=== PATIENT | female | born 1970 | race American Indian/Alaskan Native ===

== ENCOUNTER 2017-08-16 08:08 | Outpatient (CLI) | payer BC ==
--- NOTE | 2017-08-16 09:55 | Mammography Report ---
Screening mammogram: Mammotomograms were obtained bilaterally in CC and lateral views with 2-D compiled images. The fibroglandular pattern is heterogeneous. In the upper outer right breast there is a focal area of denser fibroglandular appearing tissue. No calcifications. The findings otherwise appeared generally symmetric and unremarkable bilaterally. Unknown location of prior exams. CAD used. Impression: Right breast asymmetry. Recommendation: If the location of prior exams cannot be obtained for comparison recommend right breast ultrasound. BI-RADS CATEGORY: 0 = Needs additional imaging evaluation ACR BI-RADS MAMMOGRAPHIC CODES: 0 = Needs additional imaging evaluation; 1 = Negative; 2 = Benign; 3 = Probably benign; 4 = Suspicious; 5 = Malignant; 6 = Known biopsy-proven malignancy COMMENT: 1. Dense breast tissue, i.e., adenosis, fibrocystic changes, etc., may obscure an underlying neoplasm. 2. Approximately 10% of cancers are not detected with mammography. 3. A negative mammography report should not delay biopsy if a clinically suspicious mass is present. No
== END 2017-08-16 08:09 | disposition home or self-care (01) ==
LOC: MAMMO 08:08
PROVIDERS: ATTEND Obstetrics & Gynecology
DX: Z12.31 Encounter for screening mammogram for malignant neoplasm of breast (principal)
CPT/HCPCS: 77063; G0202; 77067

== ENCOUNTER 2017-11-14 08:18 | Outpatient (CLI) | payer BC ==
--- NOTE | 2017-11-14 15:51 | Ultrasound Report ---
FINAL REPORT EXAM: US PELVIC COMPLETE HISTORY: DYSFUNCTIONAL UTERINE BLEEDING TECHNIQUE: Ultrasound evaluation of the pelvis using TRANSABDOMINAL technique PRIORS: None. FINDINGS: Uterus measures 9.3 x 5.9 x 5.3 cm. No cul-de-sac free fluid. Neither ovary visualized with transabdominal technique. No visible adnexal mass. IMPRESSION: No sonographic evidence of acute pelvic pathology
--- NOTE | 2017-11-14 15:53 | Ultrasound Report ---
FINAL REPORT EXAM: US TRANSVAGINAL HISTORY: DYSFUNCTIONAL UTERINE BLEEDING , patient , LMP 11/01/2017 TECHNIQUE: Ultrasound evaluation of the pelvis using TRANSVAGINAL technique PRIORS: None. FINDINGS: Uterus size and shape are normal, 9.3 x 5.9 x 5.3 cm. Two small hypoechoic nodules are suggestive of fibroids. One measures 17 mm in the upper fundus and the other is 8 mm in the lower anterior uterus. Nabothian cyst in the cervix. The premenopausal endometrium is homogenous. Endometrial thickness is 6mm. There is no cul-de-sac free fluid. Normal ovarian size. No evidence of solid ovarian mass. Ovarian/adnexal blood flow is present. The adnexa are normal. Right ovary: 2.2 x 0.9 x 1.9 cm Left ovary: 2.0 x 1.1 x 1.8 cm IMPRESSION: Two small uterine nodules suggestive of fibroids Normal-appearing endometrium
== END 2017-11-14 08:19 | disposition home or self-care (01) ==
LOC: US 08:18
PROVIDERS: ATTEND Obstetrics & Gynecology
DX: N88.8 Other specified noninflammatory disorders of cervix uteri (principal); N93.8 Other specified abnormal uterine and vaginal bleeding
CPT/HCPCS: 76830; 76856

== ENCOUNTER 2018-06-19 10:58 | Outpatient (CLI) | payer BC ==
[2018-06-19 11:40] LABS: Hematocrit 38.2 % (30.3-42.9); Hemoglobin 12.8 gm/dl (10.1-14.3); Mean Corpuscular HGB Conc 34 % (30-34); Mean Corpuscular Hemoglobin 29 pg (28-32); Mean Corpuscular Volume 86 fl (79-97); Platelet Count 223 K/mm3 (140-440); Red Blood Count 4.46 M/mm3 (3.65-5.03); Red Cell Distribution Width 14.1 % (13.2-15.2)
[2018-06-19 12:24] LABS: Alanine Aminotransferase 9 units/L (7-56); Albumin 3.8 g/dL (3.9-5); BUN/Creatinine Ratio 14; Blood Urea Nitrogen 10 mg/dL (7-17); Calcium 8.8 mg/dL (8.4-10.2); Chol/HDL Ratio 4.84 %; HDL Cholesterol 46 mg/dL (40-59); Hemolysis Index 0; LDL Cholesterol,Direct 183 mg/dL (50-130)
[2018-06-19 12:31] LABS: Free T4 (Free Thyroxine) 1.32 ng/dL (0.76-1.46)
== END 2018-06-19 10:59 | disposition home or self-care (01) ==
LOC: LAB 10:58
PROVIDERS: ATTEND Internal Medicine
DX: Z01.419 Encounter for gynecological examination (general) (routine) without abnormal findings (principal); N97.9 Female infertility, unspecified; Z88.2 Allergy status to sulfonamides; Z91.040 Latex allergy status
CPT/HCPCS: 36415; 80053; 80061; 82652; 82672; 83001; 83036; 84144; 84439; 84443; 85027

== ENCOUNTER 2019-05-12 07:25 | Outpatient (CLI) | payer BC ==
--- NOTE | 2019-05-12 08:44 | Mammography Report ---
BILATERAL DIGITAL SCREENING MAMMOGRAMS WITH CAD INDICATION: Screening. COMPARISONS: 08/16/2017 FINDINGS: Craniocaudal and mediolateral oblique views of both breasts were obtained using 2-D digital acquisition. The breast tissue is heterogeneously dense, which may obscure small masses. A partially circumscribed right outer asymmetry on the CC view requires additional imaging. It is not identified on the comparison mammogram. No architectural distortion or suspicious calcifications. Th e left breast is negative. IMPRESSION: Right asymmetry requiring additional imaging. Recommend recall for right ML and CC spot compression v iews and right breast ultrasound if needed. BI-RADS CATEGORY 0: INCOMPLETE - NEED ADDITIONAL IMAGING EVALUATION AND/OR PRIOR MAMMOGRAMS FOR COMP ARISON Information is entered into a reminder system for a target due date for the next mammogram. The resul ts and recommendations were sent to the patient by mail. Signer Name: Mikey Umaña MD Signed: 05/12/2019 8:40 AM Workstation Name: [id number]
== END 2019-05-12 07:26 | disposition home or self-care (01) ==
LOC: MAMMO 07:25
PROVIDERS: ATTEND Obstetrics & Gynecology
DX: Z12.31 Encounter for screening mammogram for malignant neoplasm of breast (principal)
CPT/HCPCS: 77067

== ENCOUNTER 2019-05-31 00:56 | Emergency (ER) | payer BC ==
[2019-05-31 01:15] VITALS: BP 137/99
[2019-05-31] MEDS ORDERED: DELTASONE PO ONE (01:47)
[2019-05-31] MEDS ORDERED: IBUPROFEN PO ONE (01:47)
--- NOTE | 2019-05-31 01:55 | XRay Report ---
LEFT FOOT 3 VIEWS . INDICATION / CLINICAL INFORMATION: Left foot/heel pain. COMPARISON: None available. FINDINGS: Small plantar calcaneal spur. Mild degenerative change in the first metatarsophalangeal joint. No oth er significant skeletal abnormality. Signer Name: Partha TERRY Signed: 05/31/2019 1:50 AM Workstation Name: [id number]
--- NOTE | 2019-05-31 02:05 | Emergency Department Report ---
ED Lower Extremity HPI - General Chief Complaint: Extremity Injury, Lower Stated Complaint: L FOOT PAIN Time Seen by Provider: 05/31/19 01:33 Source: patient Mode of arrival: Ambulatory Limitations: No Limitations - History of Present Illness Initial Comments: pt is a 49 y/o aaf who presents for left foot pain and mild swelling to heel x 2 months denies fall injury or trauma no nubmess or tingling pain is 7/10 plantar region MD Complaint: foot injury Onset/Timin -: month(s) Injury: Foot: Left Type of Injury: unknown Place: home Severity: moderate Severity scale (0 -10): 5 Improves With: NSAID Worsens With: weight bearing, movement, palpation Associated Symptoms: swelling, able to partially bear weight - Related Data Previous Rx's Medication Instructions Recorded Last Taken Type Ibuprofen [Motrin 800 MG tab] 800 mg PO Q8HR PRN #30 tablet 05/31/19 Unknown Rx predniSONE [Deltasone] 40 mg PO QDAY 5 Days #10 tab 05/31/19 Unknown Rx Allergies Allergy/AdvReac Type Severity Reaction Status Date / Time latex AdvReac Rash,ITCHIN Verified 05/31/19 01:50 G,HIVES Sulfa (Sulfonamide AdvReac Itching,HIV Verified 05/31/19 01:50 Antibiotics) ES ED Review of Systems ROS: Stated complaint: L FOOT PAIN Other details as noted in HPI Constitutional: denies: chills, fever Eyes: denies: eye pain, eye discharge, vision change ENT: denies: ear pain, throat pain Respiratory: denies: cough, shortness of breath, wheezing Cardiovascular: denies: chest pain, palpitations Endocrine: no symptoms reported Gastrointestinal: denies: abdominal pain, nausea, diarrhea Genitourinary: denies: urgency, dysuria, discharge Musculoskeletal: other (heel pain ). denies: back pain, joint swelling, arthralgia Skin: denies: rash, lesions Neurological: denies: headache, weakness, paresthesias Psychiatric: denies: anxiety, depression Hematological/Lymphatic: denies: easy bleeding, easy bruising ED Past Medical Hx - Past Medical History Previous Medical History?: Yes Hx Asthma: Yes - Surgical History Past Surgical History?: Yes Additional Surgical History: Tubal ligation and reversal - Social History Smoking Status: Never Smoker Substance Use Type: None - Medications Home Medications: Home Medications Medication Instructions Recorded Confirmed Last Taken Type Ibuprofen [Motrin 800 MG tab] 800 mg PO Q8HR PRN #30 tablet 05/31/19 Unknown Rx predniSONE [Deltasone] 40 mg PO QDAY 5 Days #10 tab 05/31/19 Unknown Rx ED Physical Exam - General Limitations: No Limitations General appearance: alert, in no apparent distress - Head Head exam: Present: atraumatic, normocephalic - Eye Eye exam: Present: normal appearance, PERRL, EOMI Pupils: Present: normal accommodation - ENT ENT exam: Present: mucous membranes moist - Neck Neck exam: Present: normal inspection, full ROM - Respiratory Respiratory exam: Present: normal lung sounds bilaterally. Absent: respiratory distress, wheezes, stridor, chest wall tenderness - Cardiovascular Cardiovascular Exam: Present: regular rate, normal rhythm, normal heart sounds. Absent: systolic murmur, diastolic murmur, rubs, gallop - GI/Abdominal GI/Abdominal exam: Present: soft, normal bowel sounds. Absent: distended, tenderness, bruit, hernia - Rectal Rectal exam: Present: deferred - Extremities Exam Extremities exam: Present: full ROM, tenderness, normal capillary refill, joint swelling. Absent: pedal edema, calf tenderness - Expanded Lower Extremity Exam Left Foot/Toe exam: Present: tenderness (left heel plantar region ), calcaneal tenderness. Absent: swelling, abrasion, laceration, ecchymosis, deformity, crepidus, dislocation, erythema, amputation, puncture wound, foreign body, tenderness at base of 5th metatarsal, nail avulsion, subungual hematoma Neuro vascular tendon exam: Absent: pulse deficit, motor deficit, sensory deficit, tendon deficit Gait: Positive: observed and limited by pain - Back Exam Back exam: Present: normal inspection, full ROM. Absent: tenderness, CVA tenderness (R), CVA tenderness (L), rash noted - Neurological Exam Neurological exam: Present: alert, oriented X3, CN II-XII intact, normal gait, reflexes normal. Absent: motor sensory deficit - Psychiatric Psychiatric exam: Present: normal affect, normal mood - Skin Skin exam: Present: warm, dry, intact, normal color. Absent: rash ED Course Vital Signs 05/31/19 01:13 Temperature 98.4 F Pulse Rate 74 Respiratory 14 Rate Blood Pressure 137/99 O2 Sat by Pulse 100 Oximetry ED Lower Extremity MDM - Radiology Data Radiology results: report reviewed, image reviewed Ordering Physician: SOBEIDA BOYD MD Date of Service: 05/31/19 Procedure(s): XR foot 3+V LT Accession Number(s): [id number] cc: SOBEIDA BOYD MD Fluoro Time In Minutes: LEFT FOOT 3 VIEWS . INDICATION / CLINICAL INFORMATION: Left foot/heel pain. COMPARISON: None available. FINDINGS: Small plantar calcaneal spur. Mild degenerative change in the first metatarsophalangeal joint. No other significant skeletal abnormality. Signer Name: Partha Casper MD FACR Signed: 05/31/2019 1:50 AM Workstation Name: [id number] Transcribed By: MS Dictated By: Partha Casper MD Electronically Authenticated By: Partha Casper MD Signed Date/Time: 05/31/19149 DD/ 9 TD/TT: - Medical Decision Making this is a heel spur , plantar fascitis plan, nsaids, prednisone, pt will follow up with podiatry in 2-3 days. , Post op shoe improves pain Critical care attestation.: If time is entered above; I have spent that time in minutes in the direct care of this critically ill patient, excluding procedure time. ED Disposition Clinical Impression: Plantar fasciitis of left foot Heel spur Qualifiers: Laterality: left Qualified Code(s): M77.32 - Calcaneal spur, left foot Disposition: - TO HOME OR SELFCARE Is pt being admited?: No Does the pt Need Aspirin: No Condition: Stable Instructions: Plantar Fasciitis (ED) Prescriptions: predniSONE [Deltasone] 40 mg PO QDAY 5 Days #10 tab Ibuprofen [Motrin 800 MG tab] 800 mg PO Q8HR PRN #30 tablet PRN Reason: pain Referrals: GERMAN MATHEWS DPM [Staff Physician] - 3-5 Days Forms: Work/School Release Form(ED) Time of Disposition: 02:14
== END 2019-05-31 02:29 | disposition home or self-care (01) ==
LOC: ED 00:56
DX: M72.2 Plantar fascial fibromatosis (principal); M77.9 Enthesopathy, unspecified; J45.909 Unspecified asthma, uncomplicated; Z98.51 Tubal ligation status; Z79.899 Other long term (current) drug therapy; Z88.2 Allergy status to sulfonamides; Z91.040 Latex allergy status
CPT/HCPCS: 73630; 99283; J7512

== ENCOUNTER 2019-06-05 07:46 | Outpatient (CLI) | payer BC ==
--- NOTE | 2019-06-05 09:26 | Mammography Report ---
RIGHT DIGITAL DIAGNOSTIC MAMMOGRAM WITH CAD 06/05/2019 RIGHT LIMITED BREAST ULTRASOUND INDICATION: Abnormal screening mammogram TECHNIQUE: Digital right mammographic imaging was performed. Spot compression views were obtained. L imited ultrasound was performed. This examination was interpreted with the benefit of Computer-Aided Detection (CAD) analysis. COMPARISON: Screening mammogram, 05/12/2019 FINDINGS: Breast Density: The breasts are heterogeneously dense, which may obscure small masses. There is a well-circumscribed round mass in the upper outer quadrant of the right breast measuring a pproximately 1.4 cm. Mass is located 4-5 cm from the nipple at approximately T10-11 o'clock. Ultrasound Findings: Targeted ultrasound evaluation was performed of the area of interest. There is a 1.4 cm simple cyst in the right breast at 10:00, 4 cm from the nipple. This correlates with mammog raphic findings and needs no further evaluation. IMPRESSION: 1.4 cm simple cyst is present in the right breast at 10:00 and accounts for the mammograp hic finding noted on recent screening mammogram. This is a benign finding requires no further evaluat ion. BI-RADS Category 2: Benign. Recommend routine screening mammography in one year A "normal" or negative report should not discourage follow up or biopsy of a clinically significant f inding. A written summary of these findings will be mailed to the patient. The patient will be entered into a mammography reporting system which will generate a reminder letter for the patient's next appointmen t at the appropriate interval. FURTHER INFORMATION: According to the [employer], yearly mammograms are recommend ed starting at age 40 and continuing as long as a woman is in good health. Breast MRI is recommended for women with an approximately 20-25% or greater lifetime risk of breast cancer, including women wi th a strong family history of breast or ovarian cancer and women who have been treated for Hodgkin's disease. Signer Name: Lia Triana MD Signed: 06/05/2019 9:22 AM Workstation Name: [email or web address]
--- NOTE | 2019-06-05 09:27 | Ultrasound Report ---
Please see separately dictated right diagnostic mammography report for combined mammogram and ultraso und report. Signer Name: Lia Triana MD Signed: 06/05/2019 9:22 AM Workstation Name: [email or web address]
== END 2019-06-05 07:47 | disposition home or self-care (01) ==
LOC: MAMMO 07:46
PROVIDERS: ATTEND Obstetrics & Gynecology
DX: N60.01 Solitary cyst of right breast (principal); J45.909 Unspecified asthma, uncomplicated

== ENCOUNTER 2020-01-14 22:36 | Emergency (ER) | payer BC ==
--- NOTE | 2020-01-14 22:47 | Emergency Department Report ---
ED General Adult HPI - General Stated complaint: BACK PAIN Time Seen by Provider: 01/14/20 22:45 Source: patient Mode of arrival: Ambulatory Limitations: No Limitations - History of Present Illness Initial comments: Patient is a 49-year-old female who presents emergency room with complaints of right flank and back pain x4 days. Patient states she has been taking Motrin 600 mg every 6 hours with good relief but once the medication wears off the pain comes back in full force. Patient states the pain is a 10 out of 10. Patient states it is worse with movement and palpation. Patient states is better with rest. Patient denies injury or trauma. Patient denies dysuria. Patient denies fever and chills. -: Sudden Location: back Radiation: non-radiation Severity scale (0 -10): 10 Quality: stabbing, sharp Consistency: constant Improves with: rest Worsens with: movement Associated Symptoms: denies: confusion, chest pain, cough, diaphoresis, fever /chills, headaches, loss of appetite, malaise, nausea/vomiting, rash, seizure, shortness of breath, syncope, weakness Treatments Prior to Arrival: NSAID - Related Data Previous Rx's Medication Instructions Recorded Last Taken Type Ibuprofen [Motrin 800 MG tab] 800 mg PO Q8HR PRN #30 tablet 05/31/19 Unknown Rx predniSONE [Deltasone] 40 mg PO QDAY 5 Days #10 tab 05/31/19 Unknown Rx Cyclobenzaprine [Flexeril] 10 mg PO TID PRN #30 tablet 01/15/20 Unknown Rx methylPREDNISolone [Medrol 4MG 4 mg PO DAILY 6 Days #1 tab.ds.pk 01/15/20 Unknown Rx DOSEPAK (21 tabs)] Allergies Allergy/AdvReac Type Severity Reaction Status Date / Time latex AdvReac Rash,ITCHIN Verified 05/31/19 01:50 G,HIVES Sulfa (Sulfonamide AdvReac Itching,HIV Verified 05/31/19 01:50 Antibiotics) ES ED Review of Systems ROS: Stated complaint: BACK PAIN Other details as noted in HPI Constitutional: denies: chills, fever Eyes: denies: eye pain, eye discharge, vision change ENT: denies: ear pain, throat pain Respiratory: denies: cough, shortness of breath, wheezing Cardiovascular: denies: chest pain, palpitations Endocrine: no symptoms reported Gastrointestinal: as per HPI, other. denies: abdominal pain, nausea, diarrhea Genitourinary: denies: urgency, dysuria, discharge Musculoskeletal: back pain. denies: joint swelling, arthralgia Skin: denies: rash, lesions Neurological: denies: headache, weakness, paresthesias Psychiatric: denies: anxiety, depression Hematological/Lymphatic: denies: easy bleeding, easy bruising ED Past Medical Hx - Past Medical History Previous Medical History?: Yes Hx Asthma: Yes - Surgical History Past Surgical History?: Yes Additional Surgical History: Tubal ligation and reversal - Family History Family history: no significant - Social History Smoking Status: Never Smoker Substance Use Type: None - Medications Home Medications: Home Medications Medication Instructions Recorded Confirmed Last Taken Type Ibuprofen [Motrin 800 MG tab] 800 mg PO Q8HR PRN #30 tablet 05/31/19 Unknown Rx predniSONE [Deltasone] 40 mg PO QDAY 5 Days #10 tab 05/31/19 Unknown Rx Cyclobenzaprine [Flexeril] 10 mg PO TID PRN #30 tablet 01/15/20 Unknown Rx methylPREDNISolone [Medrol 4MG 4 mg PO DAILY 6 Days #1 tab.ds.pk 01/15/20 Unknown Rx DOSEPAK (21 tabs)] ED Physical Exam - General Limitations: No Limitations General appearance: alert, in no apparent distress - Head Head exam: Present: atraumatic, normocephalic - Eye Eye exam: Present: normal appearance - ENT ENT exam: Present: mucous membranes moist - Neck Neck exam: Present: normal inspection - Respiratory Respiratory exam: Present: normal lung sounds bilaterally. Absent: respiratory distress - Cardiovascular Cardiovascular Exam: Present: regular rate, normal rhythm. Absent: systolic murmur, diastolic murmur, rubs, gallop - GI/Abdominal GI/Abdominal exam: Present: soft, normal bowel sounds - Extremities Exam Extremities exam: Present: normal inspection - Back Exam Back exam: Present: normal inspection, tenderness, CVA tenderness (R), muscle spasm. Absent: full ROM - Neurological Exam Neurological exam: Present: alert, oriented X3 - Psychiatric Psychiatric exam: Present: normal affect, normal mood - Skin Skin exam: Present: warm, dry, intact, normal color. Absent: rash ED Course Vital Signs 01/14/20 23:55 Temperature 97.9 F Pulse Rate 95 H Respiratory 18 Rate Blood Pressure 134/90 [Left] O2 Sat by Pulse 95 Oximetry - Reevaluation(s) Reevaluation #1: I discussed all results and clinical findings with patient. I discussed plan of care with patient. Patient agrees with plan of care. Patient is stable for discharge. Patient will be discharged home. Patient given discharge instructions. Patient voiced understanding of discharge instructions. 01/15/20 00:37 ED Medical Decision Making - Lab Data Result diagrams: 01/14/20 23:10 01/14/20 23:10 - Radiology Data Radiology results: report reviewed CT ABDOMEN AND PELVIS WITHOUT CONTRAST INDICATION: Left flank pain. COMPARISON: No relevant prior imaging study available. TECHNIQUE: Axial, coronal and sagittal CT imaging of the abdomen and pelvis was performed without contrast. Lack of intravenous contrast limits evaluation of the vascular and solid organs. All CT scans at this location are performed using CT dose reduction for ALARA by means of automated exposure control. FINDINGS: LOWER CHEST: No significant abnormality. LIVER: No significant abnormality. BILIARY: No significant abnormality. PANCREAS: No significant abnormality. SPLEEN: No significant abnormality. ADRENALS: No significant abnormality. KIDNEYS AND URETERS: Multiple bilateral parapelvic cysts are noted measuring up to 4 cm on the right and 4.3 cm on the left. No additional significant abnormality. GI TRACT: No significant abnormality of the stomach, small bowel or colon. Unremarkable appendix. PERITONEUM: No free fluid. No free air. No fluid collection. LYMPH NODES: No significant adenopathy. VASCULATURE: No significant abnormality. URINARY BLADDER: No significant abnormality. REPRODUCTIVE ORGANS: No significant abnormality. ADDITIONAL FINDINGS: None. SKELETAL SYSTEM: No significant abnormality. IMPRESSION: 1. No acute abnormality of the abdomen or pelvis. 2. Additional findings as above. - Medical Decision Making Patient is a 49-year-old female who presents emergency room with right flank and back pain. Patient's clinical findings are consistent with a lumbar muscle strain and muscle spasm. Due to patient's symptoms patient had a CT of the abdomen to check for kidney stones. Patient CT is negative for acute findings but is positive for renal cyst. Patient's labs are unremarkable. Patient given a Toradol IM shot which improved her pain. Patient stable for discharge. Patient discharged home. - Differential Diagnosis Flank pain, kidney stone, UTI. Back pain, back strain Critical care attestation.: If time is entered above; I have spent that time in minutes in the direct care of this critically ill patient, excluding procedure time. ED Disposition Clinical Impression: Flank pain Back pain Qualifiers: Back pain location: low back pain Chronicity: acute Back pain laterality: right Sciatica presence: without sciatica Qualified Code(s): M54.5 - Low back pain Lumbar strain Qualifiers: Encounter type: initial encounter Qualified Code(s): S39.012A - Strain of muscle, fascia and tendon of lower back, initial encounter Disposition: TO HOME OR SELFCARE Is pt being admited?: No Does the pt Need Aspirin: No Condition: Stable Instructions: Muscle Strain (ED), Abdominal Pain (ED), Low Back Strain (ED), Muscle Spasm (ED) Additional Instructions: Patient to follow-up with primary care in 2 to 3 days. Patient to follow-up with orthopedist in 2 to 3 days. Patient to rest. Patient to be off work for 1 day and can return in 24 hours. Patient to increase water. Patient to avoid strenuous exercise or heavy lifting until cleared by orthopedist. Patient to take Tylenol or ibuprofen as needed for pain. Patient to take meds as directed. Patient to return to the ER if condition worsens, changes or new symptoms arise. Prescriptions: Cyclobenzaprine [Flexeril] 10 mg PO TID PRN #30 tablet PRN Reason: Muscle Spasm methylPREDNISolone [Medrol 4MG DOSEPAK (21 tabs)] 4 mg PO DAILY 6 Days #1 tab.ds.pk Referrals: PRIMARY CARE, [Primary Care Provider] - 2-3 Days Time of Disposition: 00:53
[2020-01-14 23:05] LABS: Bilirubin,Urine NEG (Negative); Blood,Urine NEG (Negative); Color,Urine Yellow (Yellow); Mucus,Urine FEW /HPF; Protein,Urine <15 mg/dL mg/dL (Negative); Urobilinogen,Urine < 2.0 mg/dL (<2.0)
[2020-01-14 23:24] LABS: Basophils % (Auto) 0.5 % (0.0-1.8); Eosinophils # (Auto) 0.3 K/mm3 (0.0-0.4); Eosinophils % (Auto) 2.9 % (0.0-4.3); Hematocrit 41.9 % (30.3-42.9); Hemoglobin 13.5 gm/dl (10.1-14.3); Lymphocytes # (Auto) 2.4 K/mm3 (1.2-5.4); Lymphocytes % (Auto) 26.4 % (13.4-35.0); Mean Corpuscular HGB Conc 32 % (30-34); Mean Corpuscular Volume 88 fl (79-97); Monocytes # (Auto) 0.5 K/mm3 (0.0-0.8); Monocytes % (Auto) 5.6 % (0.0-7.3); Platelet Count 231 K/mm3 (140-440); Red Blood Count 4.78 M/mm3 (3.65-5.03); Red Cell Distribution Width 14.8 % (13.2-15.2)
--- NOTE | 2020-01-14 23:40 | Cat Scan Report ---
CT ABDOMEN AND PELVIS WITHOUT CONTRAST INDICATION: Left flank pain. COMPARISON: No relevant prior imaging study available. TECHNIQUE: Axial, coronal and sagittal CT imaging of the abdomen and pelvis was performed without co ntrast. Lack of intravenous contrast limits evaluation of the vascular and solid organs. All CT sca ns at this location are performed using CT dose reduction for ALARA by means of automated exposure co ntrol. FINDINGS: LOWER CHEST: No significant abnormality. LIVER: No significant abnormality. BILIARY: No significant abnormality. PANCREAS: No significant abnormality. SPLEEN: No significant abnormality. ADRENALS: No significant abnormality. KIDNEYS AND URETERS: Multiple bilateral parapelvic cysts are noted measuring up to 4 cm on the right and 4.3 cm on the left. No additional significant abnormality. GI TRACT: No significant abnormality of the stomach, small bowel or colon. Unremarkable appendix. PERITONEUM: No free fluid. No free air. No fluid collection. LYMPH NODES: No significant adenopathy. VASCULATURE: No significant abnormality. URINARY BLADDER: No significant abnormality. REPRODUCTIVE ORGANS: No significant abnormality. ADDITIONAL FINDINGS: None. SKELETAL SYSTEM: No significant abnormality. IMPRESSION: 1. No acute abnormality of the abdomen or pelvis. 2. Additional findings as above. Signer Name: Adrian Nguyễn MD Signed: 01/14/2020 11:35 PM Workstation Name: [id number]
[2020-01-14 23:52] LABS: Alanine Aminotransferase 11 units/L (7-56); Albumin 4.1 g/dL (3.9-5); BUN/Creatinine Ratio 13; Blood Urea Nitrogen 10 mg/dL (7-17); Calcium 9.1 mg/dL (8.4-10.2); Hemolysis Index 5
[2020-01-14 23:53] LABS: Bilirubin,Direct < 0.2 mg/dL (0-0.2)
[2020-01-15 00:14] VITALS: BP 134/90
[2020-01-15] MEDS ORDERED: KETOROLAC 60 MG/2 ML INJ IM ONE (00:35)
== END 2020-01-15 01:00 | disposition home or self-care (01) ==
LOC: ED 22:36
DX: S39.012A Strain of muscle, fascia and tendon of lower back, initial encounter (principal); R10.9 Unspecified abdominal pain; J45.909 Unspecified asthma, uncomplicated; Y93.89 Activity, other specified; Y92.89 Other specified places as the place of occurrence of the external cause; Y99.8 Other external cause status
CPT/HCPCS: 36415; 74176; 80048; 80076; 81001; 85025; 96372; 99284; J1885

== ENCOUNTER 2020-05-05 10:22 | Outpatient (CLI) | payer BC ==
[2020-05-05 11:32] LABS: Chol/HDL Ratio 4.18 %
[2020-05-09 12:50] LABS: Vitamin D, 25-OH, D2 <4 ng/mL
== END 2020-05-05 10:23 | disposition home or self-care (01) ==
LOC: LAB 10:22
PROVIDERS: ATTEND Emergency Medicine
DX: Z01.419 Encounter for gynecological examination (general) (routine) without abnormal findings (principal)
CPT/HCPCS: 36415; 80061; 82306; 82670; 83001; 83036; 86689

== ENCOUNTER 2020-05-23 07:23 | Outpatient (CLI) | payer BC ==
--- NOTE | 2020-05-23 08:51 | Mammography Report ---
DIGITAL SCREENING MAMMOGRAM WITH CAD, 05/23/2020 INDICATION: Routine screening mammography. TECHNIQUE: Digital bilateral 2D mammography was obtained in the craniocaudal and mediolateral obliq ue projections. This examination was interpreted with the benefit of Computer-Aided Detection analysi s. COMPARISON: 05/12/2019, 08/16/2017 FINDINGS: Breast Density: The breasts are heterogeneously dense, which may obscure small masses. There is no evidence of dominant mass, suspicious calcifications or architectural distortion in the l eft breast. Stable mass at 10:00 in the right breast has been proven to be a simple cyst and is gross ly unchanged. Overall, no significant interval change in the appearance of the mammogram. IMPRESSION: No evidence of malignancy. Follow up recommendation: Routine yearly BI-RADS Category 2: Benign. A "normal" or negative report should not discourage follow up or biopsy of a clinically significant f inding. A written summary of these findings will be mailed to the patient. The patient will be entered into a mammography reporting system which will generate a reminder letter for the patient's next appointmen t at the appropriate interval. The [employer] recommends yearly mammograms starting at age 40 and continuing as l omar as a woman is in good health. Breast MRI is recommended for women with an approximate 20-25% or greater lifetime risk of breast cancer, including women with a strong family history of breast or ova celestino cancer or who have been treated for Hodgkin's disease. Signer Name: Lia Triana MD Signed: 05/23/2020 8:46 AM Workstation Name: [email or web address]
== END 2020-05-23 07:24 | disposition home or self-care (01) ==
LOC: MAMMO 07:23
PROVIDERS: ATTEND Obstetrics & Gynecology
DX: Z12.31 Encounter for screening mammogram for malignant neoplasm of breast (principal)
CPT/HCPCS: 77067

== ENCOUNTER 2020-09-26 00:29 | Emergency (ER) | payer BC ==
[2020-09-26 00:40] VITALS: BP 122/83
--- NOTE | 2020-09-26 01:23 | XRay Report ---
CHEST 1 VIEW INDICATION: cough. COMPARISON: None. FINDINGS: Support devices: None. Heart: Normal. Lungs/Pleura: No acute pulmonary or pleural findings. IMPRESSION: 1. No acute findings. Signer Name: Anish Angelo MD Signed: 09/26/2020 1:19 AM Workstation Name: [id number]
--- NOTE | 2020-09-26 02:12 | Emergency Department Report ---
- General Chief Complaint: Upper Respiratory Infection Stated Complaint: COUGH X 1 MONTH PUI?: Yes Time Seen by Provider: 09/26/20 01:31 Source: patient Mode of arrival: Ambulatory Limitations: No Limitations - History of Present Illness MD Complaint: cough, rhinorrhea, nasal congestion -: Gradual, week(s) Severity: mild Consistency: constant Improves With: OTC cold medicine Worsens With: nothing Associated Symptoms: rhinorrhea, nasal congestion, cough. denies: fever, chills, myalgias, diaphoresis, shortness of breath, abdominal pain, vomiting, diarrhea, right sweats, weight loss, hoarseness Treatments Prior to Arrival: none - Related Data Previous Rx's Medication Instructions Recorded Last Taken Type Ibuprofen [Motrin 800 MG tab] 800 mg PO Q8HR PRN #30 tablet 05/31/19 Unknown Rx predniSONE [Deltasone] 40 mg PO QDAY 5 Days #10 tab 05/31/19 Unknown Rx Cyclobenzaprine [Flexeril] 10 mg PO TID PRN #30 tablet 01/15/20 Unknown Rx methylPREDNISolone [Medrol 4MG 4 mg PO DAILY 6 Days #1 tab.ds.pk 01/15/20 Unknown Rx DOSEPAK (21 tabs)] Albuterol Mdi (or & Nicu Only) 2 puff IH QID PRN #1 inhalation 09/26/20 Unknown Rx [ProAir HFA Inhaler] Azithromycin [Zithromax] 500 mg PO QDAY #5 tablet 09/26/20 Unknown Rx Benzonatate [Tessalon Perles] 100 mg PO Q8HR #20 capsule 09/26/20 Unknown Rx Fluconazole (Nf) [Diflucan TAB] 150 mg PO ONCE #1 tablet 09/26/20 Unknown Rx predniSONE [Deltasone] 50 mg PO QDAY #5 tab 09/26/20 Unknown Rx Allergies Allergy/AdvReac Type Severity Reaction Status Date / Time latex AdvReac Rash,ITCHIN Verified 05/31/19 01:50 G,HIVES Sulfa (Sulfonamide AdvReac Itching,HIV Verified 05/31/19 01:50 Antibiotics) ES ED Review of Systems ROS: Stated complaint: COUGH X 1 MONTH Other details as noted in HPI Comment: All other systems reviewed and negative ED Past Medical Hx - Past Medical History Previous Medical History?: Yes Hx Diabetes: Yes Hx Asthma: Yes - Surgical History Past Surgical History?: Yes Additional Surgical History: Tubal ligation and reversal - Social History Smoking Status: Never Smoker Substance Use Type: None - Medications Home Medications: Home Medications Medication Instructions Recorded Confirmed Last Taken Type Ibuprofen [Motrin 800 MG tab] 800 mg PO Q8HR PRN #30 tablet 05/31/19 Unknown Rx predniSONE [Deltasone] 40 mg PO QDAY 5 Days #10 tab 05/31/19 Unknown Rx Cyclobenzaprine [Flexeril] 10 mg PO TID PRN #30 tablet 01/15/20 Unknown Rx methylPREDNISolone [Medrol 4MG 4 mg PO DAILY 6 Days #1 tab.ds.pk 01/15/20 Unknown Rx DOSEPAK (21 tabs)] Albuterol Mdi (or & Nicu Only) 2 puff IH QID PRN #1 inhalation 09/26/20 Unknown Rx [ProAir HFA Inhaler] Azithromycin [Zithromax] 500 mg PO QDAY #5 tablet 09/26/20 Unknown Rx Benzonatate [Tessalon Perles] 100 mg PO Q8HR #20 capsule 09/26/20 Unknown Rx Fluconazole (Nf) [Diflucan TAB] 150 mg PO ONCE #1 tablet 09/26/20 Unknown Rx predniSONE [Deltasone] 50 mg PO QDAY #5 tab 09/26/20 Unknown Rx ED Physical Exam - General Limitations: No Limitations General appearance: alert, in no apparent distress - Head Head exam: Present: atraumatic, normocephalic - Eye Eye exam: Present: normal appearance, PERRL, EOMI Pupils: Present: normal accommodation - ENT ENT exam: Present: mucous membranes moist - Neck Neck exam: Present: normal inspection, full ROM - Respiratory Respiratory exam: Present: normal lung sounds bilaterally. Absent: respiratory distress, wheezes, rales, chest wall tenderness, decreased breath sounds, prolonged expiratory - Cardiovascular Cardiovascular Exam: Present: regular rate, normal rhythm. Absent: bradycardia, systolic murmur, diastolic murmur, rubs, gallop - GI/Abdominal GI/Abdominal exam: Present: soft, normal bowel sounds. Absent: distended, tenderness, organomegaly - Extremities Exam Extremities exam: Present: normal inspection - Back Exam Back exam: Present: normal inspection - Neurological Exam Neurological exam: Present: alert, oriented X3 - Psychiatric Psychiatric exam: Present: normal affect, normal mood - Skin Skin exam: Present: warm, dry, intact, normal color. Absent: rash ED Course Vital Signs 09/26/20 00:32 Temperature 98.2 F Pulse Rate 99 H Respiratory 18 Rate Blood Pressure 122/83 O2 Sat by Pulse 98 Oximetry ED Medical Decision Making - Radiology Data Radiology results: report reviewed This patient presents with acute cough, most consistent with bronchitis. Differential diagnosis includes bronchitis, hyperreactive airway disease, pneumonia, asthma. Presentation not consistent with acute bacterial pneumonia, influenza, asthma, transient airway hyperresponsiveness. Presentation not consistent with chronic causes of cough (including GERD, asthma, postnasal discharge, medication side effect, CHF, lung cancer or mass). Normal CXR Plan: , supportive care, reassess Critical care attestation.: If time is entered above; I have spent that time in minutes in the direct care of this critically ill patient, excluding procedure time. ED Disposition Clinical Impression: Bronchitis Disposition: DC-01 TO HOME OR SELFCARE Is pt being admited?: No Does the pt Need Aspirin: No Condition: Stable Instructions: Chronic Bronchitis (ED), How to Use a Dry Powder Inhaler, Adka-cy-Bhen, Acute Bronchitis, Adult, Chronic Obstructive Pulmonary Disease Prescriptions: predniSONE [Deltasone] 50 mg PO QDAY #5 tab Fluconazole (Nf) [Diflucan TAB] 150 mg PO ONCE #1 tablet Albuterol Mdi (or & Nicu Only) [ProAir HFA Inhaler] 2 puff IH QID PRN #1 inhalation PRN Reason: Shortness Of Breath Benzonatate [Tessalon Perles] 100 mg PO Q8HR #20 capsule Azithromycin [Zithromax] 500 mg PO QDAY #5 tablet Referrals: PRIMARY MD TAYLOR [Primary Care Provider] - 3-5 Days ELISSA RINALDI MD [Staff Physician] - 3-5 Days
== END 2020-09-26 02:11 | disposition home or self-care (01) ==
LOC: ED 00:29
DX: J40 Bronchitis, not specified as acute or chronic (principal); E11.9 Type 2 diabetes mellitus without complications; Z79.899 Other long term (current) drug therapy; Z88.2 Allergy status to sulfonamides; Z91.040 Latex allergy status; Z98.51 Tubal ligation status
CPT/HCPCS: 71045; 99283

== ENCOUNTER 2021-01-02 11:08 | Outpatient (CLI) | payer BC ==
[2021-01-02 11:50] LABS: Hematocrit 40.1 % (30.3-42.9); Hemoglobin 13.5 gm/dl (10.1-14.3); Mean Corpuscular HGB Conc 34 % (30-34); Mean Corpuscular Volume 88 fl (79-97); Platelet Count 189 K/mm3 (140-440); Red Blood Count 4.55 M/mm3 (3.65-5.03)
[2021-01-02 12:12] LABS: Alanine Aminotransferase 20 units/L (7-56); Albumin 4.3 g/dL (3.9-5); BUN/Creatinine Ratio 18; Blood Urea Nitrogen 14 mg/dL (7-17); Calcium 9.2 mg/dL (8.4-10.2); Chol/HDL Ratio 3.57 %; HDL Cholesterol 57 mg/dL (40-59); Hemolysis Index 2; LDL Cholesterol,Direct 153 mg/dL (50-130)
== END 2021-01-02 11:09 | disposition home or self-care (01) ==
LOC: LAB 11:08
PROVIDERS: ATTEND Obstetrics & Gynecology
DX: N95.1 Menopausal and female climacteric states (principal); R61 Generalized hyperhidrosis
CPT/HCPCS: 36415; 80053; 80061; 82670; 83001; 84436; 84443; 84481; 85027; 86800

== ENCOUNTER 2021-01-30 05:25 | Emergency (ER) | payer BC ==
--- NOTE | 2021-01-30 05:39 | Event Note ---
ED Screening Note ED Screening Note: This is a 50 yo female with hx of asthma, anemia who presents with dizziness and "water" sensation of right ear. Ms. Farmer began taking weight loss medication phentermine last week. Today, she felt as if she was going to fall. This initial assessment/diagnostic orders/clinical plan/treatment(s) is/are subject to change based on patients health status, clinical progression and re- assessment by fellow clinical providers in the ED. Further treatment and workup at subsequent clinical providers discretion. Patient/guardian urged not to elope from the ED as their condition may be serious if not clinically assessed and managed. Initial orders include: EKG, labs
[2021-01-30 06:18] LABS: Basophils # (Auto) 0.1 K/mm3 (0.0-0.1); Eosinophils # (Auto) 0.2 K/mm3 (0.0-0.4); Eosinophils % (Auto) 2.1 % (0.0-4.3); Hematocrit 40.3 % (30.3-42.9); Hemoglobin 13.6 gm/dl (10.1-14.3); Lymphocytes # (Auto) 4.3 K/mm3 (1.2-5.4); Lymphocytes % (Auto) 47.9 % (13.4-35.0); Mean Corpuscular HGB Conc 34 % (30-34); Mean Corpuscular Volume 88 fl (79-97); Monocytes # (Auto) 0.4 K/mm3 (0.0-0.8); Monocytes % (Auto) 4.5 % (0.0-7.3); Platelet Count 215 K/mm3 (140-440); Red Cell Distribution Width 13.9 % (13.2-15.2)
[2021-01-30] MEDS ORDERED: MECLIZINE 25 MG TAB PO ONE (06:32)
[2021-01-30] MEDS ORDERED: ONDANSETRON 4 MG/2 ML INJ IV ONE (06:32)
--- NOTE | 2021-01-30 06:37 | Emergency Department Report ---
HPI - General Chief Complaint: Dizziness Time Seen by Provider: 01/30/21 06:06 - HPI HPI: Room 19 The patient is a 50-year-old female present with a chief complaint of dizziness. Patient states for the past 3 days she has had a sensation that something is been in her right ear canal. The patient states when she came into work last night at 19: 00 she has some dizziness that lasted for a few seconds and then resolved. Patient states while at work the dizziness returned again for a few seconds and resolved. Approximately 1 hour prior to this interview the patient had a third episode of dizziness however this time is been persistent. Patient denies headache but states she has periauricular discomfort as well as a sensation that something is in her right ear. Patient developed nausea but denies vomiting. Patient states she felt off balance as though she was going to fall causing her to sit down. Patient denies chest pain or shortness of breath. Patient denies URI symptoms but states she has had itchy eyes secondary to allergies. Patient denies any hearing attenuation. Of note the patient has been on phentermine for 1 week and she took her last dose yesterday afternoon (approximately 13: 00) ED Past Medical Hx - Past Medical History Previous Medical History?: Yes Hx Diabetes: Yes (Borderline) Hx Asthma: Yes Additional medical history: anemia - Surgical History Past Surgical History?: Yes Additional Surgical History: Tubal ligation and reversal - Family History Family history: no significant - Social History Smoking Status: Never Smoker Substance Use Type: Alcohol (Rarely) - Medications Home Medications: Home Medications Medication Instructions Recorded Confirmed Last Taken Type Ibuprofen [Motrin 800 MG tab] 800 mg PO Q8HR PRN #30 tablet 05/31/19 Unknown Rx predniSONE [Deltasone] 40 mg PO QDAY 5 Days #10 tab 05/31/19 Unknown Rx Cyclobenzaprine [Flexeril] 10 mg PO TID PRN #30 tablet 01/15/20 Unknown Rx methylPREDNISolone [Medrol 4MG 4 mg PO DAILY 6 Days #1 tab.ds.pk 01/15/20 Unknown Rx DOSEPAK (21 tabs)] Albuterol Mdi (or & Nicu Only) 2 puff IH QID PRN #1 inhalation 09/26/20 Unknown Rx [ProAir HFA Inhaler] Azithromycin [Zithromax] 500 mg PO QDAY #5 tablet 09/26/20 Unknown Rx Benzonatate [Tessalon Perles] 100 mg PO Q8HR #20 capsule 09/26/20 Unknown Rx Fluconazole (Nf) [Diflucan TAB] 150 mg PO ONCE #1 tablet 09/26/20 Unknown Rx predniSONE [Deltasone] 50 mg PO QDAY #5 tab 09/26/20 Unknown Rx Meclizine [Antivert] 25 mg PO TID PRN #20 tablet 01/30/21 Unknown Rx Ondansetron [Zofran ODT TAB] 8 mg PO Q8HR #20 tab.rapdis 01/30/21 Unknown Rx ED Review of Systems ROS: Stated complaint: DIZZINESS Other details as noted in HPI Constitutional: denies: fever Eyes: denies: eye pain ENT: ear pain. denies: hearing loss Respiratory: denies: cough Cardiovascular: denies: chest pain Endocrine: no symptoms reported Gastrointestinal: nausea. denies: vomiting Genitourinary: denies: dysuria Musculoskeletal: denies: back pain Neurological: vertigo. denies: headache Physical Exam - Physical Exam Vital Signs: Vital Signs 01/30/21 05:29 Temperature 97.5 F L Pulse Rate 120 H Respiratory 18 Rate Blood Pressure 153/97 [Right] O2 Sat by Pulse 100 Oximetry Physical Exam: GENERAL: The patient is well-developed well-nourished female lying on stretcher not appearing to be in acute distress. [] HEENT: Normocephalic. Atraumatic. Extraocular motions are intact. No nystagmus noted. Patient has moist mucous membranes. Left TM clear small amount of cerumen present in the canal. Right TM obscured by cerumen. (After CT scan performed cerumen was cleared out of the right auditory canal using alligator forceps I was able to visualize the right TM which appears within normal limits. No soft tissue masses visualized in the canal.) NECK: Supple. Trachea midline CHEST/LUNGS: Clear to auscultation. There is no respiratory distress noted. HEART/CARDIOVASCULAR: Regular. There is no tachycardia. There is no gallop rub or murmur. ABDOMEN: Abdomen is soft, nontender. Patient has normal bowel sounds. There is no abdominal distention. SKIN: There is no rash. There is no edema. There is no diaphoresis. NEURO: The patient is awake, alert, and oriented. The patient is cooperative. The patient has no focal neurologic deficits. The patient has normal speech. Cranial nerves II through XII grossly intact. No nystagmus noted. There is no dysmetria noted with [id number] bilaterally MUSCULOSKELETAL: There is no evidence of acute injury. ED Course Vital Signs 01/30/21 05:29 Temperature 97.5 F L Pulse Rate 120 H Respiratory 18 Rate Blood Pressure 153/97 [Right] O2 Sat by Pulse 100 Oximetry - Reevaluation(s) Reevaluation #1: 01/30/21 08:10 Patient states she still feels dizzy but feels improved. Patient states she does not wish to be admitted to the hospital. Strong warnings given 01/30/21 08:14 Patient not orthostatic ED Medical Decision Making - Lab Data Result diagrams: 01/30/21 05:45 01/30/21 05:45 Laboratory Tests 01/30/21 01/30/21 01/30/21 05:45 05:45 05:45 WBC 8.9 RBC 4.60 Hgb 13.6 Hct 40.3 MCV 88 MCH 30 MCHC 34 RDW 13.9 Plt Count 215 Lymph % (Auto) 47.9 H Worth % (Auto) 4.5 Eos % (Auto) 2.1 Baso % (Auto) 1.0 Lymph # (Auto) 4.3 Worth # (Auto) 0.4 Eos # (Auto) 0.2 Baso # (Auto) 0.1 Seg Neutrophils % 44.5 Seg Neutrophils # 4.0 Sodium 141 Potassium 3.5 L Chloride 102.7 Carbon Dioxide 26 Anion Gap 16 BUN 13 Creatinine 0.9 Estimated GFR > 60 BUN/Creatinine Ratio 14 Glucose 117 H Calcium 9.2 Total Bilirubin 0.20 AST 18 ALT 13 Alkaline Phosphatase 108 Troponin T < 0.010 Total Protein 6.7 Albumin 4.2 Albumin/Globulin Ratio 1.7 TSH 3.890 Free T4 1.29 - EKG Data -: EKG Interpreted by Ut EKG shows normal: sinus rhythm Rate: normal - EKG Data When compared to previous EKG there are: previous EKG unavailable Interpretation: other (No ischemic changes seen) - Radiology Data Radiology results: report reviewed (CT head), image reviewed (CT head) [facility] [address] [place] [address] Cat Scan Report Signed Patient: VALENTINSTEVEN R#: [id number] : 1970 Acct:[id number] Age/Sex: 50 / F ADM Date: 01/30/21 Loc: ED Attending Dr: Ordering Physician: LUIS COSTA MD Date of Service: 01/30/21 Procedure(s): CT head/brain wo con Accession Number(s): [id number] cc: LUIS COSTA MD CT head/brain wo con INDICATION: Dizziness, right periauricular discomfort. TECHNIQUE: All CT scans at this location are performed using CT dose reduction for ALARA by means of automated exposure control. COMPARISON: None available. FINDINGS: Visualized paranasal and mastoid sinuses are clear. There is a small (5 mm) area of soft tissue density in the right external auditory canal, possibly foreign body. Middle and inner ear structures appear unremarkable. Ventricles are symmetrical and normal in size. No mass, hemorrhage or other significant abnormality. IMPRESSION: 1. 5 mm soft tissue density in the right external auditory canal. Suggest direct visualization to distinguish between foreign body and localized soft tissue lesion projecting into the canal. No significant intracranial abnormalities. Signer Name: Ady Chavis MD Signed: 01/30/2021 7:41 AM Workstation Name: [id number] Transcribed By: TM Dictated By: Ady Chavis MD Electronically Authenticated By: Ady Chavis MD Signed Date/Time: 01/30/21740 DD/ 4 TD/TT: - Differential Diagnosis Vertigo, mastoiditis, ICH, medication reaction, Critical care attestation.: If time is entered above; I have spent that time in minutes in the direct care of this critically ill patient, excluding procedure time. ED Disposition Clinical Impression: Vertigo Disposition: DC-01 TO HOME OR SELFCARE Is pt being admited?: No Does the pt Need Aspirin: No Condition: Stable Instructions: Dizziness, Bejh-ro-Fuko, Vertigo, Labyrinthitis, Wugt-vv-Uugl Additional Instructions: Return to the emergency department should you develop worsening symptoms, inability to tolerate food or liquids, high fever or any other concerns Prescriptions: Meclizine [Antivert] 25 mg PO TID PRN #20 tablet PRN Reason: Vertigo Ondansetron [Zofran ODT TAB] 8 mg PO Q8HR #20 tab.rapdis Referrals: NAGI WARD MD [Staff Physician] - 3-5 Days (Dr. Ward is an [employer] recruiter (ear nose and throat doctor). Please follow-up with him for further evaluation) ELISSA RINALDI MD [Primary Care Provider] - 3-5 Days MITCHEL ESPANA MD [Staff Physician] - 3-5 Days (Dr. Espana is a neurologist. Please follow-up with him for further evaluation) Time of Disposition: 08:14
[2021-01-30 06:44] LABS: Alanine Aminotransferase 13 units/L (7-56); Albumin 4.2 g/dL (3.9-5); BUN/Creatinine Ratio 14; Blood Urea Nitrogen 13 mg/dL (7-17); Calcium 9.2 mg/dL (8.4-10.2); Hemolysis Index 5
[2021-01-30 07:01] VITALS: BP 128/76
[2021-01-30 07:05] LABS: Free T4 (Free Thyroxine) 1.29 ng/dL (0.76-1.46)
--- NOTE | 2021-01-30 07:45 | Cat Scan Report ---
CT head/brain wo con INDICATION: Dizziness, right periauricular discomfort. TECHNIQUE: All CT scans at this location are performed using CT dose reduction for ALARA by means of automated e xposure control. COMPARISON: None available. FINDINGS: Visualized paranasal and mastoid sinuses are clear. There is a small (5 mm) area of soft tissue densi ty in the right external auditory canal, possibly foreign body. Middle and inner ear structures appea r unremarkable. Ventricles are symmetrical and normal in size. No mass, hemorrhage or other significant abnormality. IMPRESSION: 1. 5 mm soft tissue density in the right external auditory canal. Suggest direct visualization to dis tinguish between foreign body and localized soft tissue lesion projecting into the canal. No significant intracranial abnormalities. Signer Name: Ady Chavis MD Signed: 01/30/2021 7:41 AM Workstation Name: [id number]
--- NOTE | 2021-02-03 10:08 | Electrocardiograph Report ---
[facility] Test Date: 2021-01-30 Test Time: 05:39:10 Pat Name: STEVEN HANSON Department: Room: Gender: F [employer]: NAYELI : 1970 Requested By: LANE WEI Order Number: [id number] Reading MD: Carolyne Henderson Measurements Intervals [place] Rate: 93 P: 44 MS: 120 QRS: 63 QRSD: 85 T: -46 QT: 364 QTc: 454 Interpretive Statements Sinus rhythm No previous ECG available for comparison Electronically Signed On 02-03-2021 10:08:26 EDT by Carolyne Henderson
== END 2021-01-30 08:51 | disposition home or self-care (01) ==
LOC: ED 05:25
DX: R42 Dizziness and giddiness (principal); E11.9 Type 2 diabetes mellitus without complications; D64.9 Anemia, unspecified; J45.909 Unspecified asthma, uncomplicated; Z79.899 Other long term (current) drug therapy; Z98.51 Tubal ligation status; Z88.2 Allergy status to sulfonamides; Z91.040 Latex allergy status
CPT/HCPCS: 36415; 70450; 80053; 84439; 84443; 84484; 85025; 93005; 96374; 99284; J2405

== ENCOUNTER 2021-04-07 11:09 | Outpatient (CLI) | payer BC ==
--- NOTE | 2021-04-07 16:38 | Magnetic Resonance Report ---
MR brain wo/w con INDICATION / CLINICAL INFORMATION: 51 years Female; sensorineural hearing loss; dizziness right anterior. TECHNIQUE: Pre and postcontrast MRI of the IACs and brain. COMPARISON: None available. FINDINGS: IACS: There is no evidence of abnormal enhancement in the inner ear structures, internal auditory can als, or cerebellopontine angles. Normal T1 and T2 signal intensity seen in the cochlea, vestibule, an d semicircular canals. VII-VIII complex is normal in appearance bilaterally. No abnormality seen in t he allan. Note, branches of the right AICA, in close proximity to the seventh-8th nerve root complex-this best seen on high-resolution T2 imaging. BRAIN / INTRACRANIAL CONTENTS: No acute ischemia, acute hemorrhage, mass effect, midline shift, or hy drocephalus. No chronic infarct or atrophy. No significant white matter abnormality. I see no signs of abnormal enhancement on whole brain imaging, following contrast demonstration. CRANIOCERVICAL JUNCTION: No significant abnormality. VASCULAR FLOW-VOIDS: No significant abnormality. ORBITS: No significant abnormality of visualized orbits. SINUSES / MASTOIDS: There is significant opacification of the ethmoids. There is also significant opa cification and air-fluid level seen in the left maxillary antrum. Mild mucosal thickening in the mast oids. ADDITIONAL FINDINGS: None. IMPRESSION: 1. No definitive abnormality seen in the temporal bones. Small branches of the right AICA, a common c lose proximity to the seventh-8th nerve root complex on the right. 2. No focal mass, hemorrhage, hydrocephalus, or acute ischemia/infarct seen on whole brain imaging. 3. Sinus disease noted. Signer Name: Fantasma Alanis MD, III Signed: 04/07/2021 4:33 PM Workstation Name: [id number]
== END 2021-04-07 11:10 | disposition home or self-care (01) ==
LOC: MRI 11:09
PROVIDERS: ATTEND Internal Medicine
DX: J32.9 Chronic sinusitis, unspecified (principal); H90.5 Unspecified sensorineural hearing loss
CPT/HCPCS: 70553; A9575

== ENCOUNTER 2022-04-18 23:35 | Emergency (ER) | payer BC ==
[2022-04-18 23:43] VITALS: BP 161/96
[2022-04-19 00:18] LABS: Basophils # (Auto) 0.1 K/mm3 (0.0-0.1); Basophils % (Auto) 0.7 % (0.0-1.8); Eosinophils # (Auto) 0.3 K/mm3 (0.0-0.4); Eosinophils % (Auto) 2.6 % (0.0-4.3); Hematocrit 40.6 % (30.3-42.9); Hemoglobin 13.3 gm/dl (10.1-14.3); Lymphocytes # (Auto) 2.8 K/mm3 (1.2-5.4); Lymphocytes % (Auto) 28.5 % (13.4-35.0); Mean Corpuscular HGB Conc 33 % (30-34); Mean Corpuscular Volume 86 fl (79-97); Monocytes # (Auto) 0.6 K/mm3 (0.0-0.8); Monocytes % (Auto) 6.1 % (0.0-7.3); Platelet Count 205 K/mm3 (140-440); Red Cell Distribution Width 14.9 % (13.2-15.2)
--- NOTE | 2022-04-19 00:27 | XRay Report ---
CHEST 2 VIEWS INDICATION / CLINICAL INFORMATION: Chest Pain. COMPARISON: Chest x-ray 09/26/2020 FINDINGS: SUPPORT DEVICES: None. HEART / MEDIASTINUM: No significant abnormality. LUNGS / PLEURA: No significant pulmonary or pleural abnormality. No pneumothorax. BONES: No significant osseous abnormality. ADDITIONAL FINDINGS: No significant additional findings. IMPRESSION: 1. No active cardiopulmonary disease. Signer Name: Charbel Childers II, MD Signed: 04/19/2022 12:23 AM Workstation Name: [id number]
[2022-04-19 00:31] LABS: INR 0.87 (0.87-1.13)
[2022-04-19 00:32] LABS: Partial Thromboplastin Time 25.2 Sec. (24.2-36.6)
[2022-04-19] MEDS ORDERED: predniSONE 20 MG TAB PO ONE (00:46)
[2022-04-19 02:26] LABS: BUN/Creatinine Ratio 14; Blood Urea Nitrogen 14 mg/dL (7-17); Calcium 9.1 mg/dL (8.4-10.2); Hemolysis Index 17
--- NOTE | 2022-04-19 03:01 | Emergency Department Report ---
ED Chest Pain HPI - General Chief Complaint: Chest Pain Stated Complaint: CHEST PAINS Time Seen by Provider: 04/19/22 00:22 Source: patient Mode of arrival: Ambulatory Limitations: No Limitations - History of Present Illness Initial Comments: 52 yo black female with no pmh presents to ed for evaluation of chest pain that stated on Saturday. She states that pain is to left chest, has been persistent, and worse with certain movements and palpation. She denies sob, n/v, dizziness, fever, and diaphoresis. She states that she has also had persistent left shoulder pain for the past 3 months and had limited ROM to area. MD Complaint: chest pain -: Gradual Pain Location: left chest Severity: moderate Severity scale (0 -10): 6 Quality: aching Consistency: constant Worsens With: palpation, movement re: denies: nausea, vomting, diaphoresis, dyspnea, sense of impending doom Other Symptoms: denies: cough, fever, syncope, rash, acid taste in mouth, leg swelling, palpitations Treatments Prior to Arrival: none - Related Data Previous Rx's Medication Instructions Recorded Last Taken Type Ibuprofen [Motrin 800 MG tab] 800 mg PO Q8HR PRN #30 tablet 05/31/19 Unknown Rx predniSONE [Deltasone] 40 mg PO QDAY 5 Days #10 tab 05/31/19 Unknown Rx Cyclobenzaprine [Flexeril] 10 mg PO TID PRN #30 tablet 01/15/20 Unknown Rx methylPREDNISolone [Medrol 4MG 4 mg PO DAILY 6 Days #1 tab.ds.pk 01/15/20 Unknown Rx DOSEPAK (21 tabs)] Albuterol Mdi (or & Nicu Only) 2 puff IH QID PRN #1 inhalation 09/26/20 Unknown Rx [ProAir HFA Inhaler] Azithromycin [Zithromax] 500 mg PO QDAY #5 tablet 09/26/20 Unknown Rx Benzonatate [Tessalon Perles] 100 mg PO Q8HR #20 capsule 09/26/20 Unknown Rx Fluconazole (Nf) [Diflucan TAB] 150 mg PO ONCE #1 tablet 09/26/20 Unknown Rx predniSONE [Deltasone] 50 mg PO QDAY #5 tab 09/26/20 Unknown Rx Meclizine [Antivert] 25 mg PO TID PRN #20 tablet 01/30/21 Unknown Rx Ondansetron [Zofran ODT TAB] 8 mg PO Q8HR #20 tab.rapdis 01/30/21 Unknown Rx Prednisone [predniSONE 10 mg 10 mg PO .TAPER #1 pack 04/19/22 Unknown Rx (6-Day Pack, 21 Tabs)] Allergies Allergy/AdvReac Type Severity Reaction Status Date / Time latex AdvReac Rash,ITCHIN Verified 05/31/19 01:50 G,HIVES Sulfa (Sulfonamide AdvReac Itching,HIV Verified 05/31/19 01:50 Antibiotics) ES Heart Score - HEART Score History: Slightly suspicious EKG: Normal Age: 45-65 Risk factors: 1-2 risk factors Troponin: < normal limit HEART Score: 2 - EKG Read Time Time EKG Completed: 23:44 EKG Read Time: 23:51 - Critical Actions Critical Actions: 0-3 pts:0.9-1.7%risk of adverse cardiac event.Candidate for discharge ED Review of Systems ROS: Stated complaint: CHEST PAINS Other details as noted in HPI Comment: All other systems reviewed and negative Constitutional: denies: chills, fever ENT: denies: congestion Respiratory: denies: cough, orthopnea, shortness of breath, SOB with exertion, SOB at rest, stridor, wheezing Cardiovascular: chest pain. denies: palpitations, dyspnea on exertion, orthopnea, edema, syncope, paroxysmal nocturnal dyspnea Gastrointestinal: denies: abdominal pain, nausea, vomiting, diarrhea, hematemesis, melena, hematochezia Musculoskeletal: denies: back pain Neurological: denies: headache, weakness ED Past Medical Hx - Past Medical History Previous Medical History?: Yes Hx Diabetes: Yes (Borderline) Hx Asthma: Yes Additional medical history: anemia - Surgical History Past Surgical History?: Yes Additional Surgical History: Tubal ligation and reversal - Social History Smoking Status: Never Smoker Substance Use Type: None - Medications Home Medications: Home Medications Medication Instructions Recorded Confirmed Last Taken Type Ibuprofen [Motrin 800 MG tab] 800 mg PO Q8HR PRN #30 tablet 05/31/19 Unknown Rx predniSONE [Deltasone] 40 mg PO QDAY 5 Days #10 tab 05/31/19 Unknown Rx Cyclobenzaprine [Flexeril] 10 mg PO TID PRN #30 tablet 01/15/20 Unknown Rx methylPREDNISolone [Medrol 4MG 4 mg PO DAILY 6 Days #1 tab.ds.pk 01/15/20 Unknown Rx DOSEPAK (21 tabs)] Albuterol Mdi (or & Nicu Only) 2 puff IH QID PRN #1 inhalation 09/26/20 Unknown Rx [ProAir HFA Inhaler] Azithromycin [Zithromax] 500 mg PO QDAY #5 tablet 09/26/20 Unknown Rx Benzonatate [Tessalon Perles] 100 mg PO Q8HR #20 capsule 09/26/20 Unknown Rx Fluconazole (Nf) [Diflucan TAB] 150 mg PO ONCE #1 tablet 09/26/20 Unknown Rx predniSONE [Deltasone] 50 mg PO QDAY #5 tab 09/26/20 Unknown Rx Meclizine [Antivert] 25 mg PO TID PRN #20 tablet 01/30/21 Unknown Rx Ondansetron [Zofran ODT TAB] 8 mg PO Q8HR #20 tab.rapdis 01/30/21 Unknown Rx Prednisone [predniSONE 10 mg 10 mg PO .TAPER #1 pack 04/19/22 Unknown Rx (6-Day Pack, 21 Tabs)] ED Physical Exam - General Limitations: No Limitations General appearance: alert, in no apparent distress - Head Head exam: Present: atraumatic, normocephalic - Eye Eye exam: Present: normal appearance. Absent: conjunctival injection - Neck Neck exam: Present: normal inspection. Absent: lymphadenopathy - Respiratory Respiratory exam: Present: normal lung sounds bilaterally, chest wall t enderness. Absent: respiratory distress, wheezes, rales, rhonchi, stridor - Cardiovascular Cardiovascular Exam: Present: normal rhythm, tachycardia, normal heart sounds - Expanded Cardiovascular Exam Expanded 1 - tenderness to touch - GI/Abdominal GI/Abdominal exam: Present: soft, normal bowel sounds. Absent: distended, tenderness, guarding, rebound, rigid - Extremities Exam Extremities exam: Present: normal inspection, normal capillary refill. Absent: pedal edema, joint swelling, calf tenderness - Expanded Upper Extremity Exam Left Shoulder Exam: Present: normal inspection, tenderness. Absent: full ROM, swelling, erythema Vascular: Present: normal capillary refill, radial pulse. Absent: vascular compromise, Pallo, pulse deficit radial art - Back Exam Back exam: Present: normal inspection. Absent: CVA tenderness (R), CVA tenderness (L), vertebral tenderness - Neurological Exam Neurological exam: Present: alert, oriented X3, normal gait - Psychiatric Psychiatric exam: Present: normal affect, normal mood - Skin Skin exam: Present: warm, dry, intact, normal color ED Course Vital Signs 04/18/22 23:36 Temperature 97.8 F Pulse Rate 105 H Respiratory 18 Rate Blood Pressure 161/96 O2 Sat by Pulse 100 Oximetry CAITLIN score - Caitlin Score Age > 65: (0) No Aspirin use within the Past 7 Days: (0) No 3 or more CAD Risk Factors: (0) No 2 or more Angina events in past 24 hrs: (0) No Known CAD with more than 50% Stenosis: (0) No Elevated Cardiac Markers: (0) No ST Deviation Greater than 0.5mm: (0) No CAITLIN Score: 0 ED Medical Decision Making - Lab Data Result diagrams: 04/19/22 00:07 04/19/22 00:07 - EKG Data EKG shows normal: sinus rhythm - EKG Data Interpretation: no acute changes - Radiology Data Radiology results: report reviewed, image reviewed CXR: FINDINGS: SUPPORT DEVICES: None. HEART / MEDIASTINUM: No significant abnormality. LUNGS / PLEURA: No significant pulmonary or pleural abnormality. No pneumothorax. BONES: No significant osseous abnormality. ADDITIONAL FINDINGS: No significant additional findings. IMPRESSION: 1. No active cardiopulmonary disease. - Medical Decision Making 52 yo black female with no pmh presents to ed for evaluation of chest pain that stated on Saturday. She states that pain is to left chest, has been persistent, and worse with certain movements and palpation. She denies sob, n/v, dizziness, fever, and diaphoresis. She states that she has also had persistent left s houlder pain for the past 3 months and had limited ROM to area. EKG without any acute ischemic changes noted, troponin wnl, labs and cxr unremarkable. Physical exam consistent with chest wall tenderness. Low suspicion for ACS. Patient will be treated with steroid pack for chest wall tenderness and probable tendonitis to left shoulder and advised to follow up with pcp or cardiology for further evaluation adn management. She is advised to return to ED as needed. She verbalized understanding of and agreement with plan of care. Critical care attestation.: If time is entered above; I have spent that time in minutes in the direct care of this critically ill patient, excluding procedure time. ED Disposition Clinical Impression: Chest pain Qualifiers: Chest pain type: unspecified Qualified Code(s): R07.9 - Chest pain, unspecified Disposition: 01 HOME / SELF CARE / HOMELESS Is pt being admited?: No Does the pt Need Aspirin: No Condition: Stable Instructions: Nonspecific Chest Pain, Adult, [id number] Additional Instructions: Take medications as prescribed. Follow-up with primary care provider or cardiology for further evaluation and management. Return to the emergency department as needed. Prescriptions: Prednisone [predniSONE 10 mg (6-Day Pack, 21 Tabs)] 10 mg PO .TAPER #1 pack Referrals: ELISSA RINALDI MD [Primary Care Provider] - 3-5 Days NAHUN JAIMES MD [Staff Physician] - 3-5 Days Time of Disposition: 03:01
--- NOTE | 2022-04-19 10:22 | Electrocardiograph Report ---
[facility] Test Date: 2022-04-18 Test Time: 23:44:22 Pat Name: STEVEN HANSON Department: Room: Gender: F Appliance Fixer: BETTINA : 1970 Requested By: BALDEMAR LUNDBERG Order Number: [id number] Reading MD: Rashad Franco Measurements Intervals [place] Rate: 94 P: 32 IA: 122 QRS: 65 QRSD: 74 T: 25 QT: 354 QTc: 443 Interpretive Statements Sinus rhythm Probable left atrial enlargement Compared to ECG 01/30/2021 05:39:10 No significant changes Electronically Signed On 04-19-2022 10:22:42 EDT by Rashad Franco
== END 2022-04-19 03:26 | disposition home or self-care (01) ==
LOC: ED 23:35
DX: R07.9 Chest pain, unspecified (principal); E11.9 Type 2 diabetes mellitus without complications; J45.909 Unspecified asthma, uncomplicated; D64.9 Anemia, unspecified; Z98.890 Other specified postprocedural states; Z88.2 Allergy status to sulfonamides; Z91.040 Latex allergy status
CPT/HCPCS: 36415; 71046; 80048; 83880; 84484; 85025; 85379; 85610; 85730; 93005; 99284

== ENCOUNTER 2022-04-25 07:42 | Outpatient (CLI) | payer BC | END 2022-04-25 07:43 | disposition home or self-care (01) | LOC: LAB 07:42 | PROVIDERS: ATTEND Obstetrics & Gynecology | DX: Z01.419 Encounter for gynecological examination (general) (routine) without abnormal findings (principal) | CPT/HCPCS: 36415 ==

== ENCOUNTER 2022-04-25 10:02 | Outpatient (CLI) | payer BC ==
[2022-04-25 12:57] LABS: Alanine Aminotransferase 16 units/L (7-56); Albumin 4.5 g/dL (3.9-5); BUN/Creatinine Ratio 16; Blood Urea Nitrogen 18 mg/dL (7-17); Calcium 9.5 mg/dL (8.4-10.2); Chol/HDL Ratio 3.35 %; HDL Cholesterol 67 mg/dL (40-59); Hemolysis Index 12; LDL Cholesterol,Direct 142 mg/dL (50-130)
[2022-04-25 13:01] LABS: Hemoglobin 14.5 gm/dl (10.1-14.3); Mean Corpuscular HGB Conc 33 % (30-34); Mean Corpuscular Volume 87 fl (79-97); Platelet Count 225 K/mm3 (140-440); Red Blood Count 5.07 M/mm3 (3.65-5.03); Red Cell Distribution Width 14.9 % (13.2-15.2)
[2022-04-25 13:02] LABS: Basophils % (Auto) 0.4 % (0.0-1.8); Eosinophils % (Auto) 2.2 % (0.0-4.3); Lymphocytes % (Auto) 30.4 % (13.4-35.0); Mean Platelet Volume 9.1 fl (6-12); Monocytes % (Auto) 6.5 % (0.0-7.3)
[2022-04-25 13:03] LABS: Eosinophils # (Auto) 0.2 K/mm3 (0.0-0.4); Lymphocytes # (Auto) 3.2 K/mm3 (1.2-5.4); Monocytes # (Auto) 0.7 K/mm3 (0.0-0.8)
== END 2022-04-25 10:03 | disposition home or self-care (01) ==
LOC: LABHHL 10:02
PROVIDERS: ATTEND Internal Medicine
DX: Z01.419 Encounter for gynecological examination (general) (routine) without abnormal findings (principal); Z00.00 Encounter for general adult medical examination without abnormal findings; E55.9 Vitamin D deficiency, unspecified; E66.9 Obesity, unspecified; R53.83 Other fatigue; R73.9 Hyperglycemia, unspecified; R63.5 Abnormal weight gain
CPT/HCPCS: 36415; 80053; 80061; 82306; 82607; 82672; 83001; 83036; 84403; 84439; 84443; 84481; 85025; 86800

== ENCOUNTER 2022-05-01 18:23 | Outpatient (CLI) | payer BC ==
--- NOTE | 2022-05-02 07:34 | XRay Report ---
LEFT SHOULDER 3 VIEW(S) INDICATION / CLINICAL INFORMATION: Painful Lt shoulder COMPARISON: None available. FINDINGS: BONES / JOINT(S): No acute fracture or subluxation. Mild DJD of the AC joint. SOFT TISSUES: No significant abnormality. ADDITIONAL FINDINGS: None. Signer Name: Olayinka Torres DO Signed: 05/02/2022 7:29 AM Workstation Name: [id number]
== END 2022-05-01 18:24 | disposition home or self-care (01) ==
LOC: XRAY 18:23
PROVIDERS: ATTEND Internal Medicine
DX: M19.012 Primary osteoarthritis, left shoulder (principal)

== ENCOUNTER 2022-06-12 14:57 | Outpatient (CLI) | payer BC | END 2022-06-12 14:58 | disposition home or self-care (01) | LOC: LAB 14:57 | PROVIDERS: ATTEND Obstetrics & Gynecology | DX: R53.82 Chronic fatigue, unspecified (principal); N95.1 Menopausal and female climacteric states; Z79.899 Other long term (current) drug therapy; Z79.890 Hormone replacement therapy | CPT/HCPCS: 36415; 82670; 83001; 84403 ==